=== PATIENT | male | born 1955 | race African-American/Black ===

== ENCOUNTER → 2018-05-14 | Outpatient (CLI) | payer OTHER | END | disposition home or self-care (01) | LOC: RAD 12:09 | PROVIDERS: ATTEND Internal Medicine | DX: I63.81 Other cerebral infarction due to occlusion or stenosis of small artery (principal); E11.9 Type 2 diabetes mellitus without complications | CPT/HCPCS: 70551 ==

== ENCOUNTER → 2018-07-27 | Outpatient (CLI) | payer OTHER ==
[~2018-07-27] MED LIST: OMNIPAQUE 350 MG/ML, 100ML BOTTLE ONE
== END | disposition home or self-care (01) ==
LOC: RAD 13:43
PROVIDERS: ATTEND Internal Medicine
DX: N13.9 Obstructive and reflux uropathy, unspecified (principal); C61 Malignant neoplasm of prostate
CPT/HCPCS: 74177; Q9967

== ENCOUNTER → 2018-09-19 | Outpatient (CLI) | payer OTHER | END | disposition home or self-care (01) | LOC: RAD 10:48 | PROVIDERS: ATTEND Internal Medicine Gastroenterology | DX: C78.7 Secondary malignant neoplasm of liver and intrahepatic bile duct (principal); C80.1 Malignant (primary) neoplasm, unspecified; R22.0 Localized swelling, mass and lump, head; J90 Pleural effusion, not elsewhere classified; N32.89 Other specified disorders of bladder | CPT/HCPCS: 74181 ==